=== PATIENT | male | born 1960 | race Caucasian/White ===

== ENCOUNTER 2016-10-13 22:32 | Emergency (ER) | payer MEDICAID ==
[~2016-10-13] VITALS: Ht 170.2 cm; Wt 96.8 kg
[~2016-10-13 22:32] MED LIST: ATOR10TA84 PO; INSLAN SQ; LISI-662 PO; LOSA25TA21 PO; METF500T4 PO; SIMV-260 PO
[2016-10-13 22:42] LABS: GLUCOSE,POINT OF CARE 130 MG/DL (70-110)
[2016-10-13 23:12] LABS: BASOPHILS % (AUTO) 0.7 % (0.0-2.0); EOSINOPHILS % (AUTO) 5.7 % (1.0-6.0); HEMATOCRIT 42.1 % (41-53); LYMPHOCYTES # (AUTO) 2.7 K/uL (1.0-4.8); LYMPHOCYTES % (AUTO) 35.4 % (22.0-44.0); MEAN CORPUSCULAR HEMOGLOBIN 29.6 pg (26.0-34.0); MEAN CORPUSCULAR HGB CONC 33.2 G/dL (31.0-37.0); MEAN CORPUSCULAR VOLUME 89 fL (80-100); MONOCYTES # (AUTO) 0.8 K/uL (0.1-1.0); MONOCYTES % (AUTO) 10.1 % (2.0-9.0); NEUTROPHILS # (AUTO) 3.7 K/uL (1.8-7.7); NEUTROPHILS % (AUTO) 48.1 % (40.0-70.0); PLATELET COUNT (AUTO) 264 K/uL (150-450); RED BLOOD CELL COUNT(AUTO) 4.72 MIL/uL (4.50-5.90); RED CELL DISTRIBUTION WIDTH 12.8 % (11.5-14.5); WHITE BLOOD COUNT (AUTO) 7.6 K/uL (4.5-11.0)
[2016-10-13 23:15] LABS: APPEARANCE,URINE CLEAR (CLEAR); GLUCOSE, URINE (UA) NEGATIVE (NEGATIVE); KETONES,URINE NEGATIVE (NEGATIVE); LEUKOCYTE ESTERASE ,URINE NEGATIVE (NEGATIVE); OCCULT BLOOD,URINE NEGATIVE (NEGATIVE); PROTEIN,URINE TRACE (NEGATIVE)
[2016-10-13 23:18] LABS: ADD UA MICROSCOPIC NO
[2016-10-13 23:21] LABS: ANION GAP 10 mmol/L (8-16); CALCIUM, TOTAL 9.1 mg/dL (8.8-10.5); CARBON DIOXIDE 27 mmol/L (22-29); CHLORIDE 101 mmol/L (98-107); CREATININE 0.82 mg/dL (0.60-1.30); GLOMERULAR FILTR. RATE CALC > 60 mL/min (>60); POTASSIUM 3.6 mmol/L (3.5-5.1); SODIUM SERUM 138 mmol/L (136-145); UREA NITROGEN, BLOOD 19 mg/dL (7-18)
[2016-10-13 23:28] LABS: ALANINE AMINOTRANSFERASE 38 U/L (12-78); ALBUMIN 3.8 g/dL (3.4-5.0); ASPARTATE AMINOTRANSFERASE 21 U/L (15-37); BILIRUBIN,TOTAL 0.2 mg/dL (0.1-1.0); TOTAL PROTEIN, SERUM 7.6 g/dL (6.4-8.2)
[2016-10-14] MEDS ORDERED: ONDANSETRON HCL 4 MG/2 ML VIAL IVP ONE (01:30)
[2016-10-14] MEDS ORDERED: MORPHINE SULFATE 4 MG/ML SYRINGE IVP ONE (01:30)
[2016-10-14 02:52] VITALS: BP 126/73
== END 2016-10-14 02:54 | disposition home or self-care (01) ==
LOC: EMS 22:35
DX: R10.84 Generalized abdominal pain (principal); E11.9 Type 2 diabetes mellitus without complications; I10 Essential (primary) hypertension; E78.00 Pure hypercholesterolemia, unspecified; F17.210 Nicotine dependence, cigarettes, uncomplicated
CPT/HCPCS: 36415; 80053; 81003; 82962; 83690; 85025; 93005; 96374; 96375; 99285; J2270; J2405

== ENCOUNTER 2017-05-17 18:47 | Emergency (ER) | payer MEDICAID ==
[~2017-05-17] VITALS: Ht 170.2 cm; Wt 95.5 kg
[2017-05-17 18:57] LABS: GLUCOSE,POINT OF CARE 201 MG/DL (70-110)
[2017-05-17] MEDS ORDERED: BUPIVACAINE HCL 0.25% 50 ML VIAL PERC ONE (21:45)
[2017-05-17] MEDS ORDERED: LIDOCAINE HCL 1% 10 ML VIAL INJ ONE (21:45)
[2017-05-17] MEDS ORDERED: BUPIVACAINE HCL/PF 0.25% 10 ML VIAL PERC ONE (22:00)
[2017-05-18 00:11] VITALS: BP 120/75
== END 2017-05-18 00:15 | disposition home or self-care (01) ==
LOC: EMS 18:51
DX: S61.011A Laceration without foreign body of right thumb without damage to nail, initial encounter (principal); E78.00 Pure hypercholesterolemia, unspecified; E11.9 Type 2 diabetes mellitus without complications; I10 Essential (primary) hypertension; W26.8XXA Contact with other sharp object(s), not elsewhere classified, initial encounter; Y93.89 Activity, other specified; Y92.89 Other specified places as the place of occurrence of the external cause; Y99.8 Other external cause status
CPT/HCPCS: 12001; 73130; 82962; 99284; J3490 ×2

== ENCOUNTER 2017-11-17 16:47 | Emergency (ER) | payer MEDICAID ==
[~2017-11-17] VITALS: Ht 170.2 cm; Wt 99.1 kg
[2017-11-17] MEDS ORDERED: ASPI81 PO (17:05)
[2017-11-17 17:11] LABS: GLUCOSE,POINT OF CARE 281 MG/DL (70-110)
[2017-11-17] MEDS ORDERED: PROPARACAINE/FLUORESCEIN SOD 0.5-0.25% 0.5 ML OPHTHALMIC SOLUTION OD ONE (18:00)
[2017-11-17] MEDS ORDERED: PROPARACAINE HCL 0.5% 15 ML OPHTHALMIC SOLUTION OD ONE (18:00)
[2017-11-17] MEDS ORDERED: ERYTHROMYCIN 0.5% 3.5 GM TUBE OPHTHALMIC OINTMENT OD ONE (18:30)
[2017-11-17 18:53] VITALS: BP 136/78
== END 2017-11-17 18:58 | disposition home or self-care (01) ==
LOC: EMS 16:48
DX: T15.01XA Foreign body in cornea, right eye, initial encounter (principal); I10 Essential (primary) hypertension; M79.651 Pain in right thigh; E11.9 Type 2 diabetes mellitus without complications; E78.00 Pure hypercholesterolemia, unspecified; F17.210 Nicotine dependence, cigarettes, uncomplicated; Z79.4 Long term (current) use of insulin; Z79.82 Long term (current) use of aspirin; Y92.59 Other trade areas as the place of occurrence of the external cause
CPT/HCPCS: 65205; 82962; 99284; Z7610

== ENCOUNTER 2018-11-08 10:58 | Emergency (ER) | payer MEDICAID ==
[~2018-11-08] VITALS: Ht 167.6 cm; Wt 99.5 kg
[~2018-11-08 10:58] MED LIST changes: +ASPI81 PO; -LISI-662 PO; -LOSA25TA21 PO; +LOSA25TA41 PO; +METF-960 PO; -METF500T4 PO
[2018-11-08 11:10] VITALS: BP 132/79
[2018-11-08 11:23] LABS: GLUCOSE,POINT OF CARE 103 MG/DL (70-110)
[2018-11-08 11:44] LABS: BASOPHILS % (AUTO) 0.8 % (0.0-2.0); EOSINOPHILS % (AUTO) 3.6 % (1.0-6.0); HEMATOCRIT 44.7 % (41-53); LYMPHOCYTES # (AUTO) 1.4 K/uL (1.0-4.8); LYMPHOCYTES % (AUTO) 19.1 % (22.0-44.0); MEAN CORPUSCULAR HEMOGLOBIN 30.1 pg (26.0-34.0); MEAN CORPUSCULAR HGB CONC 33.5 G/dL (31.0-37.0); MEAN CORPUSCULAR VOLUME 90 fL (80-100); MONOCYTES # (AUTO) 0.4 K/uL (0.1-1.0); MONOCYTES % (AUTO) 5.9 % (2.0-9.0); NEUTROPHILS # (AUTO) 5.3 K/uL (1.8-7.7); NEUTROPHILS % (AUTO) 70.6 % (40.0-70.0); PLATELET COUNT (AUTO) 251 K/uL (150-450); RED BLOOD CELL COUNT(AUTO) 4.98 MIL/uL (4.50-5.90); RED CELL DISTRIBUTION WIDTH 13.5 % (11.5-14.5)
[2018-11-08] MEDS ORDERED: ONDANSETRON HCL 4 MG/2 ML VIAL IVP ONE (11:45)
[2018-11-08] MEDS ORDERED: MORPHINE SULFATE 4 MG/ML SYRINGE IVP ONE (11:45)
[2018-11-08 11:55] LABS: PROTHROMBIN TIME 10.4 SEC (9.4-11.6)
[2018-11-08 11:56] LABS: ANION GAP 8 mmol/L (8-16); CALCIUM, TOTAL 9.4 mg/dL (8.8-10.5); CARBON DIOXIDE 30 mmol/L (22-29); CHLORIDE 104 mmol/L (98-107); CREATININE 0.87 mg/dL (0.60-1.30); GLOMERULAR FILTR. RATE CALC > 60 mL/min (>60); GLUCOSE,RANDOM 98 mg/dL (70-110); POTASSIUM 4.3 mmol/L (3.5-5.1); SODIUM SERUM 142 mmol/L (136-145); UREA NITROGEN, BLOOD 15 mg/dL (7-18)
[2018-11-08 12:06] LABS: ALANINE AMINOTRANSFERASE 25 U/L (12-78); ALKALINE PHOSPHATASE 84 U/L (46-116); ASPARTATE AMINOTRANSFERASE 19 U/L (15-37); BILIRUBIN,TOTAL 0.3 mg/dL (0.1-1.0); TOTAL PROTEIN, SERUM 7.9 g/dL (6.4-8.2)
== END 2018-11-08 12:06 | disposition short-term general hospital (02) ==
LOC: EMS 11:00
DX: S30.810A Abrasion of lower back and pelvis, initial encounter (principal); S09.90XA Unspecified injury of head, initial encounter; M54.2 Cervicalgia; R07.9 Chest pain, unspecified; I10 Essential (primary) hypertension; E11.9 Type 2 diabetes mellitus without complications; E78.00 Pure hypercholesterolemia, unspecified; F17.210 Nicotine dependence, cigarettes, uncomplicated; Z79.4 Long term (current) use of insulin; Z79.82 Long term (current) use of aspirin; Z79.899 Other long term (current) drug therapy; W11.XXXA Fall on and from ladder, initial encounter; Y93.89 Activity, other specified; Y92.89 Other specified places as the place of occurrence of the external cause; Y99.8 Other external cause status
CPT/HCPCS: 36415; 71045; 80053; 82962; 85025; 85610; 85730; 93005; 96374; 96375; 99291; J2270; J2405

== ENCOUNTER 2019-06-12 17:26 | Emergency (ER) | payer MEDICAID ==
[~2019-06-12] VITALS: Ht 165.1 cm; Wt 100.0 kg
[2019-06-12] MEDS ORDERED: GLIP10 PO (17:33)
[2019-06-12] MEDS ORDERED: BACITRACIN 0.9 GM PACKET OINTMENT TP ONE (18:45)
[2019-06-12] MEDS ORDERED: POVIDONE-IODINE 10% 15 ML SOLUTION UD TP ONE (18:45)
[2019-06-12] MEDS ORDERED: LIDOCAINE 1%/EPI 1:200,000/PF 10 ML VIAL INJ ONE (18:45)
[2019-06-12] MEDS ORDERED: PERTUSS(ACELL),DIPH,TET VAC/PF 0.5 ML VIAL IM ONE (18:45)
[2019-06-12 20:10] VITALS: BP 147/95
== END 2019-06-12 20:37 | disposition home or self-care (01) ==
LOC: EMS 17:27
DX: S51.811A Laceration without foreign body of right forearm, initial encounter (principal); E11.9 Type 2 diabetes mellitus without complications; E78.00 Pure hypercholesterolemia, unspecified; I10 Essential (primary) hypertension; F17.210 Nicotine dependence, cigarettes, uncomplicated; Z98.890 Other specified postprocedural states; Z79.899 Other long term (current) drug therapy; W26.8XXA Contact with other sharp object(s), not elsewhere classified, initial encounter; Y93.89 Activity, other specified; Y92.89 Other specified places as the place of occurrence of the external cause; Y99.8 Other external cause status
CPT/HCPCS: 12002; 90471; 90715; 99283; J3490

== ENCOUNTER 2021-03-23 17:53 | Emergency (ER) | payer MEDICAID ==
[~2021-03-23] VITALS: Ht 170.2 cm; Wt 103.0 kg
[~2021-03-23 17:53] MED LIST changes: +ASPI-1450 PO; -ASPI81 PO; -ATOR10TA84 PO; +GLIP10 PO; +LOSA25TA21 PO; -LOSA25TA41 PO
[2021-03-23 20:32] VITALS: BP 158/79
== END 2021-03-23 20:34 | disposition home or self-care (01) ==
LOC: EMS 17:54
DX: M79.89 Other specified soft tissue disorders (principal); E11.9 Type 2 diabetes mellitus without complications; E78.00 Pure hypercholesterolemia, unspecified; I10 Essential (primary) hypertension; F17.210 Nicotine dependence, cigarettes, uncomplicated
CPT/HCPCS: 99283

== ENCOUNTER 2021-08-04 19:57 | Emergency (ER) | payer MEDICAID ==
[~2021-08-04] VITALS: Ht 170.2 cm; Wt 100.0 kg
[~2021-08-04 19:57] MED LIST changes: +METF-1211 PO; -METF-960 PO
[2021-08-04] MEDS ORDERED: GENTAMICIN SULFATE 0.3% OPHTHALMIC SOLUTION 5 ML OS ONE (21:45)
[2021-08-04] MEDS ORDERED: ACETAMINOPHEN 500 MG TABLET PO ONE (21:45)
[2021-08-04] MEDS ORDERED: FLUORESCEIN SODIUM 1 MG STRIP ONE (22:21)
[2021-08-04 22:46] VITALS: BP 142/58
== END 2021-08-04 22:54 | disposition home or self-care (01) ==
LOC: EMS 20:00
DX: S05.02XA Injury of conjunctiva and corneal abrasion without foreign body, left eye, initial encounter (principal); I10 Essential (primary) hypertension; E11.9 Type 2 diabetes mellitus without complications; E78.00 Pure hypercholesterolemia, unspecified; F17.210 Nicotine dependence, cigarettes, uncomplicated; Z79.4 Long term (current) use of insulin; Z79.82 Long term (current) use of aspirin; Z79.899 Other long term (current) drug therapy; X58.XXXA Exposure to other specified factors, initial encounter; Y93.89 Activity, other specified; Y92.89 Other specified places as the place of occurrence of the external cause; Y99.8 Other external cause status
CPT/HCPCS: 99283

== ENCOUNTER 2022-04-12 12:36 | Emergency (ER) | payer MEDICAID, OTHER ==
[~2022-04-12] VITALS: Ht 170.2 cm; Wt 100.0 kg
[~2022-04-12 12:36] MED LIST changes: -GLIP10 PO; +GLIP10TA10 PO; +LOSA-381 PO; -LOSA25TA21 PO
[2022-04-12] MEDS ORDERED: LISI-892 PO ×2 (13:11→14:03)
[2022-04-12] MEDS ORDERED: PERTUSS(ACELL),DIPH,TET VAC/PF 0.5 ML SYRINGE IM. ONE (14:00)
[2022-04-12] MEDS ORDERED: LIDOCAINE 1% 10 ML VIAL PERC ONE (14:00)
[2022-04-12] MEDS ORDERED: NEOMYCIN/BACITRACIN/POLYMYXIN B OINTMENT PACKET TP ONE (14:00)
[2022-04-12] MEDS ORDERED: LOSA100T58 PO (14:03)
[2022-04-12] MEDS ORDERED: GLIP5TAB12 PO (14:03)
[2022-04-12] MEDS ORDERED: ATOR40TA71 PO (14:03)
[2022-04-12] MEDS ORDERED: ASPI-1444 PO (14:03)
[2022-04-12] MEDS ORDERED: PIOG30TA70 PO (14:03)
[2022-04-12] MEDS ORDERED: CEPH-558 PO ×2 (14:06→14:55)
[2022-04-12 15:44] VITALS: BP 141/74
== END 2022-04-12 15:55 | disposition home or self-care (01) ==
LOC: EMS 12:37
DX: S61.411A Laceration without foreign body of right hand, initial encounter (principal); E11.9 Type 2 diabetes mellitus without complications; E78.00 Pure hypercholesterolemia, unspecified; I10 Essential (primary) hypertension; F17.210 Nicotine dependence, cigarettes, uncomplicated; Z98.890 Other specified postprocedural states; W22.8XXA Striking against or struck by other objects, initial encounter; Y93.89 Activity, other specified; Y92.89 Other specified places as the place of occurrence of the external cause; Y99.8 Other external cause status
CPT/HCPCS: 99283; 82962; 90715; 90471; 12001; J3490

== ENCOUNTER 2022-04-19 09:09 | Emergency (ER) | payer OTHER ==
[~2022-04-19] VITALS: Ht 170.2 cm; Wt 100.0 kg
[~2022-04-19 09:09] MED LIST changes: +ASPI-1444 PO; -ASPI-1450 PO; +ATOR40TA71 PO; +CEPH-558 PO; -GLIP10TA10 PO; +GLIP5TAB12 PO; +LISI-892 PO; -LOSA-381 PO; +LOSA100T58 PO; +PIOG30TA70 PO; -SIMV-260 PO
[2022-04-19 10:10] VITALS: BP 126/68
== END 2022-04-19 10:15 | disposition home or self-care (01) ==
LOC: EMS 09:10
DX: S61.412D Laceration without foreign body of left hand, subsequent encounter (principal); E11.9 Type 2 diabetes mellitus without complications; E78.00 Pure hypercholesterolemia, unspecified; I10 Essential (primary) hypertension; Z98.890 Other specified postprocedural states; X58.XXXD Exposure to other specified factors, subsequent encounter
CPT/HCPCS: 82962; 99281; 99282

== ENCOUNTER 2022-07-17 08:04 | Emergency (ER) | payer OTHER ==
[~2022-07-17] VITALS: Ht 170.2 cm; Wt 99.1 kg
[2022-07-17 08:36] LABS: COVID AG,FIA SOURCE NASAL SWAB
[2022-07-17 10:15] VITALS: BP 141/76
== END 2022-07-17 10:34 | disposition home or self-care (01) ==
LOC: EMS 08:34
DX: J02.8 Acute pharyngitis due to other specified organisms (principal); B97.89 Other viral agents as the cause of diseases classified elsewhere; Z20.822 Contact with and (suspected) exposure to COVID-19; E11.9 Type 2 diabetes mellitus without complications; E78.00 Pure hypercholesterolemia, unspecified; F17.210 Nicotine dependence, cigarettes, uncomplicated; I10 Essential (primary) hypertension
CPT/HCPCS: 87430; 99283

== ENCOUNTER 2023-05-03 20:10 | Inpatient (IN) | payer OTHER ==
[~2023-05-03] VITALS: Ht 170.2 cm; Wt 62.0 kg
[~2023-05-03 20:10] MED LIST changes: -LOSA100T58 PO; +LOSA100T59 PO
[2023-05-03 21:04] LABS: BASOPHILS % (AUTO) 1.1 % (0.0-2.0); EOSINOPHILS % (AUTO) 4.3 % (1.0-6.0); HEMATOCRIT 45.4 % (41-53); LYMPHOCYTES # (AUTO) 1.6 K/uL (1.0-4.8); LYMPHOCYTES % (AUTO) 27.1 % (22.0-44.0); MEAN CORPUSCULAR HEMOGLOBIN 30.8 pg (26.0-34.0); MEAN CORPUSCULAR HGB CONC 32.9 G/dL (31.0-37.0); MEAN CORPUSCULAR VOLUME 94 fL (80-100); MONOCYTES # (AUTO) 0.6 K/uL (0.1-1.0); NEUTROPHILS # (AUTO) 3.4 K/uL (1.8-7.7); NEUTROPHILS % (AUTO) 57.5 % (40.0-70.0); PLATELET COUNT (AUTO) 226 K/uL (150-450); RED BLOOD CELL COUNT(AUTO) 4.85 MIL/uL (4.50-5.90); RED CELL DISTRIBUTION WIDTH 13.5 % (11.5-14.5)
[2023-05-03 21:19] LABS: TROPONIN I-HIGH SENSITIVITY 6 ng/L (<76)
[2023-05-03 21:27] LABS: ANION GAP 10 mmol/L (8-16); CALCIUM, TOTAL 9.3 mg/dL (8.8-10.5); CARBON DIOXIDE 25 mmol/L (22-29); CHLORIDE 101 mmol/L (98-107); CREATININE 0.87 mg/dL (0.60-1.30); GLOMERULAR FILTR. RATE CALC > 60 mL/min (>60); GLUCOSE,RANDOM 144 mg/dL (70-110); POTASSIUM 3.7 mmol/L (3.5-5.1); SODIUM SERUM 136 mmol/L (136-145); UREA NITROGEN, BLOOD 24 mg/dL (7-18)
[2023-05-03 21:33] LABS: ALANINE AMINOTRANSFERASE 16 U/L (12-78); ALBUMIN 3.7 g/dL (3.4-5.0); ALKALINE PHOSPHATASE 93 U/L (46-116); ASPARTATE AMINOTRANSFERASE 14 U/L (15-37); BILIRUBIN,TOTAL 0.2 mg/dL (0.1-1.0)
[2023-05-03] MEDS ORDERED: ACETAMINOPHEN 500 MG TABLET PO ONE (22:15)
[2023-05-03] MEDS ORDERED: ONDANSETRON HCL 4 MG/2 ML VIAL IVP PRN ×2 (23:00)
[2023-05-03] MEDS ORDERED: ATROPINE SULFATE 0.1 MG/ML 10 ML SYRINGE IVP PRN (23:00)
[2023-05-03] MEDS ORDERED: DEXTROSE 50%-WATER 25 GM/50 ML SYRINGE IVP PRN (23:00)
[2023-05-03] MEDS ORDERED: ACETAMINOPHEN 325 MG TABLET PO PRN (23:00)
[2023-05-03] MEDS: HEPARIN SODIUM,PORCINE 5,000 UNITS/ML VIAL SQ SCH (23:15)
[2023-05-03 23:37] LABS: TROPONIN I-HIGH SENSITIVITY 9 ng/L (<76)
[2023-05-04] MEDS: SODIUM CHLORIDE 0.9% 1,000 ML IV SCH ×2 (02:02→22:11)
[2023-05-04 04:31] LABS: RED CELL DISTRIBUTION WIDTH 13.6 % (11.5-14.5)
[2023-05-04 04:35] LABS: BASOPHILS % (AUTO) 0.7 % (0.0-2.0); HEMATOCRIT 45.7 % (41-53); HEMOGLOBIN 15.2 g/dL (13.5-17.5); LYMPHOCYTES # (AUTO) 1.9 K/uL (1.0-4.8); LYMPHOCYTES % (AUTO) 33.3 % (22.0-44.0); MEAN CORPUSCULAR HEMOGLOBIN 31.2 pg (26.0-34.0); MEAN CORPUSCULAR HGB CONC 33.2 G/dL (31.0-37.0); MEAN CORPUSCULAR VOLUME 94 fL (80-100); MONOCYTES # (AUTO) 0.4 K/uL (0.1-1.0); MONOCYTES % (AUTO) 6.9 % (2.0-9.0); NEUTROPHILS # (AUTO) 3.2 K/uL (1.8-7.7); NEUTROPHILS % (AUTO) 55.1 % (40.0-70.0); PLATELET COUNT (AUTO) 217 K/uL (150-450); RED BLOOD CELL COUNT(AUTO) 4.86 MIL/uL (4.50-5.90); WHITE BLOOD COUNT (AUTO) 5.8 K/uL (4.5-11.0)
[2023-05-04 04:50] LABS: ANION GAP 8 mmol/L (8-16); CARBON DIOXIDE 26 mmol/L (22-29); CHLORIDE 103 mmol/L (98-107); CREATININE 0.54 mg/dL (0.60-1.30); GLOMERULAR FILTR. RATE CALC > 60 mL/min (>60); GLUCOSE,RANDOM 122 mg/dL (70-110); POTASSIUM 3.7 mmol/L (3.5-5.1); SODIUM SERUM 137 mmol/L (136-145); UREA NITROGEN, BLOOD 21 mg/dL (7-18)
[2023-05-04 05:03] LABS: CALCIUM, TOTAL 8.9 mg/dL (8.8-10.5)
[2023-05-04 05:04] LABS: TROPONIN I-HIGH SENSITIVITY 7 ng/L (<76)
[2023-05-04] MEDS: ASPIRIN 81 MG CHEWABLE TABLET PO SCH (07:31)
[2023-05-04] MEDS: ATORVASTATIN CALCIUM 40 MG TABLET PO SCH (07:31)
[2023-05-04] MEDS: HEPARIN SODIUM,PORCINE 5,000 UNITS/ML VIAL SQ SCH ×3 (07:31→23:09)
[2023-05-04] MEDS: DOCUSATE SODIUM 100 MG CAPSULE PO SCH ×2 (07:37→22:09)
[2023-05-04 08:11] LABS: GLUCOMETER DEV NAME(LOC) ER.6; GLUCOSE,POINT OF CARE 137 MG/DL (70-110)
[2023-05-04] MEDS: INSULIN GLARGINE,HUM.REC.ANLOG 100 UNITS/ML SQ SCH ×2 (08:29→21:13)
[2023-05-04] MEDS: ACETAMINOPHEN 325 MG TABLET PO PRN ×2 (11:42→23:10)
[2023-05-04 12:11] VITALS: BP 121/58; PULSE 42; RESP 20; TEMP 98
[2023-05-04 15:47] VITALS: BP 125/82; PULSE 62; RESP 18; TEMP 97.5
[2023-05-04] MEDS: INSULIN LISPRO 100 UNITS/ML SQ PRN ×2 (18:08→21:14)
[2023-05-04 19:15] VITALS: BP 122/71; PULSE 58; RESP 18; TEMP 98.1
[2023-05-04 22:55] VITALS: BP 126/69; PULSE 49; RESP 18; TEMP 98.2
[2023-05-04 23:36] LABS: GLUCOMETER DEV NAME(LOC) 5S.2C; GLUCOSE,POINT OF CARE 160 MG/DL (70-110)
[2023-05-05 03:19] VITALS: BP 122/66; PULSE 48; RESP 18; TEMP 98.1
[2023-05-05 07:37] VITALS: BP 135/74; PULSE 50; RESP 18; TEMP 98
[2023-05-05 08:12] LABS: GLUCOMETER DEV NAME(LOC) 5S.1B; GLUCOSE,POINT OF CARE 123 MG/DL (70-110)
[2023-05-05 08:12] LABS: GLUCOMETER DEV NAME(LOC) 5S.1B; GLUCOSE,POINT OF CARE 155 MG/DL (70-110)
[2023-05-05] MEDS: HEPARIN SODIUM,PORCINE 5,000 UNITS/ML VIAL SQ SCH ×3 (08:18→23:22)
[2023-05-05] MEDS: DOCUSATE SODIUM 100 MG CAPSULE PO SCH ×2 (08:19→20:38)
[2023-05-05] MEDS: ASPIRIN 81 MG CHEWABLE TABLET PO SCH (08:19)
[2023-05-05] MEDS: ATORVASTATIN CALCIUM 40 MG TABLET PO SCH (08:19)
[2023-05-05] MEDS: INSULIN GLARGINE,HUM.REC.ANLOG 100 UNITS/ML SQ SCH ×2 (08:20→20:38)
[2023-05-05] MEDS ORDERED: AMINOPHYLLINE 25 MG/ML 10 ML VIAL IVP PRN (08:30)
[2023-05-05] MEDS ORDERED: REGADENOSON 0.4 MG/5 ML PF SYRINGE IVP ONE (08:30)
[2023-05-05 09:01] LABS: GLUCOMETER DEV NAME(LOC) 5S.1B; GLUCOSE,POINT OF CARE 129 MG/DL (70-110)
[2023-05-05] MEDS ORDERED: SESTAMIBI TC99M/UD ISOTOPE 1 EA INJ INJ ONE ×2 (11:20→13:20)
[2023-05-05 11:54] VITALS: BP 138/76; PULSE 47; O2SAT 96
[2023-05-05 12:03] VITALS: BP 118/72; PULSE 52
[2023-05-05 12:12] LABS: GLUCOMETER DEV NAME(LOC) 5S.2C; GLUCOSE,POINT OF CARE 122 MG/DL (70-110)
[2023-05-05 12:36] LABS: GLUCOMETER DEV NAME(LOC) 5N.1C; GLUCOSE,POINT OF CARE 133 MG/DL (70-110)
[2023-05-05 17:18] VITALS: BP 124/83; PULSE 59; RESP 19; TEMP 98.2
[2023-05-05] MEDS: SODIUM CHLORIDE 0.9% 1,000 ML IV SCH (17:20)
[2023-05-05] MEDS: INSULIN LISPRO 100 UNITS/ML SQ PRN ×2 (17:49→20:38)
[2023-05-05 18:20] LABS: GLUCOMETER DEV NAME(LOC) 5S.2C; GLUCOSE,POINT OF CARE 147 MG/DL (70-110)
[2023-05-05 19:57] VITALS: BP 126/69; PULSE 60; RESP 18; TEMP 98.4
[2023-05-05 21:02] LABS: GLUCOMETER DEV NAME(LOC) 5S.1B; GLUCOSE,POINT OF CARE 168 MG/DL (70-110)
[2023-05-06] VITALS (17 sets, daily range): BP systolic 110–148; BP diastolic 56–82; PULSE 36–65; RESP 17–20; TEMP 97.1–98.2; O2SAT 95–98
[2023-05-06] MEDS: INSULIN LISPRO 100 UNITS/ML SQ PRN ×2 (06:21→20:36)
[2023-05-06] MEDS: HEPARIN SODIUM,PORCINE 5,000 UNITS/ML VIAL SQ SCH ×2 (08:16→16:00)
[2023-05-06] MEDS: DOCUSATE SODIUM 100 MG CAPSULE PO SCH ×2 (08:16→20:30)
[2023-05-06] MEDS: ATORVASTATIN CALCIUM 40 MG TABLET PO SCH (08:17)
[2023-05-06] MEDS: ASPIRIN 81 MG CHEWABLE TABLET PO SCH (08:18)
[2023-05-06] MEDS: INSULIN GLARGINE,HUM.REC.ANLOG 100 UNITS/ML SQ SCH ×2 (08:26→20:36)
[2023-05-06 11:36] LABS: GLUCOMETER DEV NAME(LOC) 5S.1B; GLUCOSE,POINT OF CARE 141 MG/DL (70-110)
[2023-05-06] MEDS ORDERED: LIDOCAINE/PF 1% 30 ML VIAL ONE (14:28)
[2023-05-06] MEDS ORDERED: SODIUM BICARBONATE 50 MEQ/50 ML VIAL ONE (14:28)
[2023-05-06] MEDS ORDERED: CeFAZolin SODIUM 1 GM VIAL ONE (14:28)
[2023-05-06] MEDS ORDERED: MIDAZOLAM HCL 2 MG/2 ML VIAL ONE (15:01)
[2023-05-06] MEDS ORDERED: FentaNYL CITRATE PF 100 MCG/2 ML VIAL ONE (15:01)
[2023-05-06] MEDS ORDERED: IOHEXOL 300 MG/ML 50 ML VIAL ONE (15:07)
[2023-05-06] MEDS ORDERED: LIDOCAINE 1% 30 ML/SOD BICARB 8.4% 4 ML SQ ONE (15:30)
[2023-05-06] MEDS ORDERED: CeFAZolin SODIUM 1 GM VIAL IVP ONE (15:30)
[2023-05-06] MEDS ORDERED: FentaNYL CITRATE PF 100 MCG/2 ML VIAL IVP ONE (15:30)
[2023-05-06] MEDS ORDERED: CeFAZolin SODIUM 1 GM VIAL IRRIG ONE (15:30)
[2023-05-06] MEDS ORDERED: MIDAZOLAM HCL 2 MG/2 ML VIAL IVP ONE (15:30)
[2023-05-06 16:46] LABS: GLUCOMETER DEV NAME(LOC) 5S.1B; GLUCOSE,POINT OF CARE 108 MG/DL (70-110)
[2023-05-06] MEDS ORDERED: AMINOPHYLLINE 25 MG/ML 10 ML VIAL ONE (16:54)
[2023-05-06] MEDS ORDERED: REGADENOSON 0.4 MG/5 ML PF SYRINGE IVP ONE (16:54)
[2023-05-06 17:41] LABS: GLUCOMETER DEV NAME(LOC) 5S.2C; GLUCOSE,POINT OF CARE 98 MG/DL (70-110)
[2023-05-06] MEDS: ACETAMINOPHEN 325 MG TABLET PO PRN (18:14)
[2023-05-06] MEDS: SODIUM CHLORIDE 0.9% 1,000 ML IV SCH (18:22)
[2023-05-06] MEDS ORDERED: HYDROCODONE/ACETAMINOPHEN 5-325 MG TABLET PO PRN (19:30)
[2023-05-06] MEDS: HYDROCODONE/ACETAMINOPHEN 5-325 MG TABLET PO PRN (20:28)
[2023-05-06] MEDS: CeFAZolin 1 GM/DEXTROSE 50 ML IV SCH (23:51)
[2023-05-07 00:05] VITALS: BP 114/71; PULSE 60; RESP 20; TEMP 97.7
[2023-05-07 00:16] LABS: GLUCOMETER DEV NAME(LOC) 5N.1C; GLUCOSE,POINT OF CARE 98 MG/DL (70-110)
[2023-05-07 01:12] LABS: GLUCOMETER DEV NAME(LOC) 5S.1B; GLUCOSE,POINT OF CARE 254 MG/DL (70-110)
[2023-05-07 05:58] VITALS: BP 134/77; PULSE 60; RESP 20; TEMP 98.1
[2023-05-07] MEDS: HYDROCODONE/ACETAMINOPHEN 5-325 MG TABLET PO PRN (06:04)
[2023-05-07 08:13] VITALS: BP 121/76; PULSE 58; RESP 18; TEMP 97.8
[2023-05-07] MEDS: CeFAZolin 1 GM/DEXTROSE 50 ML IV SCH (08:35)
[2023-05-07] MEDS: ASPIRIN 81 MG CHEWABLE TABLET PO SCH (08:36)
[2023-05-07] MEDS: DOCUSATE SODIUM 100 MG CAPSULE PO SCH (08:36)
[2023-05-07] MEDS: ATORVASTATIN CALCIUM 40 MG TABLET PO SCH (08:36)
[2023-05-07] MEDS: INSULIN GLARGINE,HUM.REC.ANLOG 100 UNITS/ML SQ SCH (08:44)
[2023-05-07 11:41] VITALS: BP 128/69; PULSE 71; RESP 18; TEMP 98.3
[2023-05-07] MEDS ORDERED: TRAM-559 PO (14:23)
[2023-05-08 03:16] LABS: GLUCOMETER DEV NAME(LOC) 5N.2C; GLUCOSE,POINT OF CARE 146 MG/DL (70-110)
[2023-05-08 03:16] LABS: GLUCOMETER DEV NAME(LOC) 5N.2C; GLUCOSE,POINT OF CARE 127 MG/DL (70-110)
== END 2023-05-07 15:10 | disposition home or self-care (01) | DRG 171 ==
LOC: EMS 20:11 → AHU 05-04 02:00 → 5S 05-04 10:24
PROVIDERS: ADMIT Internal Medicine; ATTEND Internal Medicine
PROC: 0JH606Z Insertion of Pacemaker, Dual Chamber into Chest Subcutaneous Tissue and Fascia, Open Approach (ICD-10-PCS; principal; 2023-05-06)
PROC: 02H60JZ Insertion of Pacemaker Lead into Right Atrium, Open Approach (ICD-10-PCS; 2023-05-06)
PROC: 02HK0JZ Insertion of Pacemaker Lead into Right Ventricle, Open Approach (ICD-10-PCS; 2023-05-06)
DX: I49.5 Sick sinus syndrome (principal); E11.9 Type 2 diabetes mellitus without complications; E78.00 Pure hypercholesterolemia, unspecified; I20.8 Other forms of angina pectoris; F17.210 Nicotine dependence, cigarettes, uncomplicated; I10 Essential (primary) hypertension; Z79.84 Long term (current) use of oral hypoglycemic drugs; Z79.82 Long term (current) use of aspirin; Z79.899 Other long term (current) drug therapy; Z82.49 Family history of ischemic heart disease and other diseases of the circulatory system; Z83.3 Family history of diabetes mellitus
CPT/HCPCS: 33208; 70450; 71045; 71046; 76000; 78452; 80048; 80053; 82962; 83735; 84443; 84484; 85025; 93005; 93306; 99285; A9500; J0280; J0461; J0690; J1644; J1815; J2250; J2785; J3010; J3490; J7030; Q9967; 36415-L1; 36415-TC

== ENCOUNTER 2023-05-10 23:41 | Inpatient (IN) | payer OTHER ==
[~2023-05-10] VITALS: Ht 170.2 cm; Wt 96.2 kg
[~2023-05-10 23:41] MED LIST changes: -LOSA100T59 PO; +TRAM-559 PO
[2023-05-11] MEDS: NITROGLYCERIN 0.4 MG SUBLINGUAL TABLET #25 SL ONE ×2 (01:19→01:50)
[2023-05-11 01:24] LABS: BASOPHILS % (AUTO) 0.8 % (0.0-2.0); EOSINOPHILS % (AUTO) 6.9 % (1.0-6.0); HEMATOCRIT 41.8 % (41-53); HEMOGLOBIN 14.1 g/dL (13.5-17.5); LYMPHOCYTES # (AUTO) 1.6 K/uL (1.0-4.8); LYMPHOCYTES % (AUTO) 27.2 % (22.0-44.0); MEAN CORPUSCULAR HEMOGLOBIN 31.4 pg (26.0-34.0); MEAN CORPUSCULAR HGB CONC 33.7 G/dL (31.0-37.0); MEAN CORPUSCULAR VOLUME 93 fL (80-100); MONOCYTES # (AUTO) 0.5 K/uL (0.1-1.0); NEUTROPHILS # (AUTO) 3.3 K/uL (1.8-7.7); NEUTROPHILS % (AUTO) 56.1 % (40.0-70.0); PLATELET COUNT (AUTO) 214 K/uL (150-450); RED BLOOD CELL COUNT(AUTO) 4.49 MIL/uL (4.50-5.90); RED CELL DISTRIBUTION WIDTH 13.5 % (11.5-14.5); WHITE BLOOD COUNT (AUTO) 5.8 K/uL (4.5-11.0)
[2023-05-11 01:31] LABS: ANION GAP 8 mmol/L (8-16); CALCIUM, TOTAL 9.1 mg/dL (8.8-10.5); CARBON DIOXIDE 30 mmol/L (22-29); CHLORIDE 100 mmol/L (98-107); CREATININE 0.88 mg/dL (0.60-1.30); GLOMERULAR FILTR. RATE CALC > 60 mL/min (>60); GLUCOSE,RANDOM 126 mg/dL (70-110); POTASSIUM 4.5 mmol/L (3.5-5.1); SODIUM SERUM 138 mmol/L (136-145); UREA NITROGEN, BLOOD 21 mg/dL (7-18)
[2023-05-11] MEDS ORDERED: ACETAMINOPHEN 500 MG TABLET ONE (01:37)
[2023-05-11 01:38] LABS: ALANINE AMINOTRANSFERASE 15 U/L (12-78); ALBUMIN 3.3 g/dL (3.4-5.0); ALKALINE PHOSPHATASE 102 U/L (46-116); ASPARTATE AMINOTRANSFERASE 14 U/L (15-37); BILIRUBIN,TOTAL 0.3 mg/dL (0.1-1.0); CREATINE KINASE, TOTAL ONLY 52 U/L (39-308); LIPASE 31 U/L (16-77); TOTAL PROTEIN, SERUM 6.8 g/dL (6.4-8.2); TROPONIN I-HIGH SENSITIVITY 9 ng/L (<76)
[2023-05-11 01:39] LABS: LACTIC ACID 1.2 mmol/L (0.4-2.0)
[2023-05-11 01:44] LABS: B-TYPE NATRIURETIC PEPTIDE 43 pg/mL (0-100)
[2023-05-11] MEDS ORDERED: ACETAMINOPHEN 500 MG TABLET PO ONE (01:45)
[2023-05-11 05:37] VITALS: BP 140/83; PULSE 62; RESP 20; TEMP 97.5
[2023-05-11 08:46] VITALS: BP 141/84; PULSE 71; RESP 18; TEMP 97.8
[2023-05-11 11:22] VITALS: BP 124/79; PULSE 60; RESP 18; TEMP 98.1
[2023-05-11 13:24] VITALS: BP 125/76; PULSE 62; RESP 20; TEMP 98.2
[2023-05-11 14:48] LABS: BASOPHILS % (AUTO) 0.9 % (0.0-2.0); EOSINOPHILS % (AUTO) 6.8 % (1.0-6.0); HEMATOCRIT 43.6 % (41-53); HEMOGLOBIN 14.6 g/dL (13.5-17.5); LYMPHOCYTES # (AUTO) 1.2 K/uL (1.0-4.8); LYMPHOCYTES % (AUTO) 22.1 % (22.0-44.0); MEAN CORPUSCULAR HEMOGLOBIN 31.3 pg (26.0-34.0); MEAN CORPUSCULAR HGB CONC 33.4 G/dL (31.0-37.0); MEAN CORPUSCULAR VOLUME 94 fL (80-100); MONOCYTES # (AUTO) 0.6 K/uL (0.1-1.0); MONOCYTES % (AUTO) 10.2 % (2.0-9.0); NEUTROPHILS # (AUTO) 3.3 K/uL (1.8-7.7); PLATELET COUNT (AUTO) 204 K/uL (150-450); RED BLOOD CELL COUNT(AUTO) 4.65 MIL/uL (4.50-5.90); RED CELL DISTRIBUTION WIDTH 13.2 % (11.5-14.5); WHITE BLOOD COUNT (AUTO) 5.5 K/uL (4.5-11.0)
[2023-05-11 14:56] LABS: ANION GAP 9 mmol/L (8-16); CALCIUM, TOTAL 8.8 mg/dL (8.8-10.5); CARBON DIOXIDE 28 mmol/L (22-29); CHLORIDE 98 mmol/L (98-107); CREATININE 0.64 mg/dL (0.60-1.30); GLOMERULAR FILTR. RATE CALC > 60 mL/min (>60); GLUCOSE,RANDOM 132 mg/dL (70-110); POTASSIUM 4.1 mmol/L (3.5-5.1); SODIUM SERUM 135 mmol/L (136-145); UREA NITROGEN, BLOOD 20 mg/dL (7-18)
[2023-05-11 15:02] LABS: ALANINE AMINOTRANSFERASE 16 U/L (12-78); ALBUMIN 3.2 g/dL (3.4-5.0); ALKALINE PHOSPHATASE 87 U/L (46-116); ASPARTATE AMINOTRANSFERASE 16 U/L (15-37); BILIRUBIN,TOTAL 0.3 mg/dL (0.1-1.0); TOTAL PROTEIN, SERUM 6.9 g/dL (6.4-8.2)
[2023-05-11 15:04] LABS: TROPONIN I-HIGH SENSITIVITY 6 ng/L (<76)
[2023-05-11] MEDS ORDERED: ZOLPIDEM TARTRATE 5 MG TABLET PO PRN (17:45)
[2023-05-11] MEDS ORDERED: ACETAMINOPHEN 325 MG TABLET PO PRN (17:45)
[2023-05-11] MEDS ORDERED: DEXTROSE 50%-WATER 25 GM/50 ML SYRINGE IVP PRN (17:45)
[2023-05-11] MEDS ORDERED: IPRATROPIUM BROMIDE 0.5 MG/2.5 ML NEB SOLUTION NEB PRN (17:45)
[2023-05-11] MEDS ORDERED: MAGNESIUM HYDROXIDE SUSPENSION 30 ML UDCUP PO PRN (17:45)
[2023-05-11] MEDS ORDERED: ALBUTEROL SULFATE 2.5 MG/0.5 ML NEB SOLUTION NEB PRN (17:45)
[2023-05-11] MEDS ORDERED: ONDANSETRON HCL 4 MG/2 ML VIAL IVP PRN (17:45)
[2023-05-11] MEDS ORDERED: TraMADol HCL 50 MG TABLET PO PRN (17:45)
[2023-05-11] MEDS ORDERED: MORPHINE SULFATE 2 MG/ML SYRINGE IVP PRN (17:45)
[2023-05-11] MEDS ORDERED: HYDROCODONE/ACETAMINOPHEN 5-325 MG TABLET PO PRN (17:45)
[2023-05-11] MEDS ORDERED: BISACODYL 10 MG RECTAL RECTAL SUPPOSITORY PR PRN (17:45)
[2023-05-11] MEDS ORDERED: INSULIN LISPRO 100 UNITS/ML SQ PRN (17:45)
[2023-05-11] MEDS ORDERED: MetFORMIN HCL 500 MG TABLET PO SCH (18:00)
[2023-05-11 18:41] LABS: GLUCOMETER DEV NAME(LOC) 5S.2C; GLUCOSE,POINT OF CARE 189 MG/DL (70-110)
[2023-05-11 19:50] VITALS: BP 114/62; PULSE 62; RESP 20; TEMP 98.5
[2023-05-11] MEDS ORDERED: LOSA-382 PO (20:10)
[2023-05-11] MEDS ORDERED: DOCUSATE SODIUM 100 MG CAPSULE PO SCH (21:00)
[2023-05-11] MEDS ORDERED: CEPHALEXIN MONOHYDRATE 500 MG CAPSULE PO SCH (21:00)
[2023-05-12] MEDS ORDERED: HEPARIN SODIUM,PORCINE 5,000 UNITS/ML VIAL SQ SCH
[2023-05-12] MEDS ORDERED: GlipiZIDE 5 MG TABLET PO SCH (06:30)
[2023-05-12] MEDS ORDERED: PIOGLITAZONE HCL 30 MG TABLET PO SCH (09:00)
[2023-05-12] MEDS ORDERED: LOSARTAN POTASSIUM 50 MG TABLET PO SCH (09:00)
[2023-05-12] MEDS ORDERED: ASPIRIN 81 MG DR TABLET PO SCH (09:00)
[2023-05-12] MEDS ORDERED: PANTOPRAZOLE SODIUM 40 MG/VIAL IVP SCH (09:00)
[2023-05-12] MEDS ORDERED: ATORVASTATIN CALCIUM 40 MG TABLET PO SCH (09:00)
== END 2023-05-11 21:00 | disposition home or self-care (01) | DRG 198 ==
LOC: EMS 23:42 → 5S 05-11 03:30 → EMS 05-11 03:51 → 5S 05-11 11:06
PROVIDERS: ADMIT Hospitalist; ATTEND Hospitalist
DX: R07.89 Other chest pain (principal); I25.2 Old myocardial infarction; E11.9 Type 2 diabetes mellitus without complications; E78.00 Pure hypercholesterolemia, unspecified; F17.210 Nicotine dependence, cigarettes, uncomplicated; I10 Essential (primary) hypertension; Z83.3 Family history of diabetes mellitus; Z82.49 Family history of ischemic heart disease and other diseases of the circulatory system; Z79.82 Long term (current) use of aspirin; Z79.899 Other long term (current) drug therapy; Z95.0 Presence of cardiac pacemaker; Z91.199 Patient's noncompliance with other medical treatment and regimen due to unspecified reason
CPT/HCPCS: 71045; 80053; 82550; 82962; 83605; 83690; 83880; 84484; 85025; 87081; 93005; 99291; 36415-L1; 36415-TC

== ENCOUNTER 2023-12-29 13:25 | Emergency (ER) | payer OTHER ==
[~2023-12-29] VITALS: Ht 170.2 cm; Wt 95.0 kg
[~2023-12-29 13:25] MED LIST changes: -GLIP5TAB12 PO; +GLIP5TAB16 PO; -LISI-892 PO; +LOSA-382 PO; -TRAM-559 PO; +TRAM50TA5 PO
[2023-12-29 13:31] VITALS: TEMP 98
[2023-12-29] MEDS ORDERED: SEMA0.258 SQ (13:32)
[2023-12-29 13:49] LABS: BASOPHILS % (AUTO) 0.8 % (0.0-2.0); EOSINOPHILS % (AUTO) 4.3 % (1.0-6.0); HEMATOCRIT 47.5 % (41-53); LYMPHOCYTES # (AUTO) 1.4 K/uL (1.0-4.8); MEAN CORPUSCULAR HGB CONC 33.6 G/dL (31.0-37.0); MEAN CORPUSCULAR VOLUME 92 fL (80-100); MONOCYTES # (AUTO) 0.4 K/uL (0.1-1.0); MONOCYTES % (AUTO) 6.6 % (2.0-9.0); NEUTROPHILS # (AUTO) 4.1 K/uL (1.8-7.7); NEUTROPHILS % (AUTO) 66.3 % (40.0-70.0); PLATELET COUNT (AUTO) 230 K/uL (150-450); RED BLOOD CELL COUNT(AUTO) 5.16 MIL/uL (4.50-5.90); RED CELL DISTRIBUTION WIDTH 13.7 % (11.5-14.5); WHITE BLOOD COUNT (AUTO) 6.2 K/uL (4.5-11.0)
[2023-12-29 14:02] LABS: CALCIUM, TOTAL 9.2 mg/dL (8.8-10.5); CREATININE 1.29 mg/dL (0.60-1.30); POTASSIUM 3.7 mmol/L (3.5-5.1)
[2023-12-29 14:07] LABS: BILIRUBIN,TOTAL 0.7 mg/dL (0.1-1.0); TOTAL PROTEIN, SERUM 7.8 g/dL (6.4-8.2); TROPONIN I-HIGH SENSITIVITY 7 ng/L (<76)
[2023-12-29] MEDS ORDERED: IBUP-1554 PO (15:59)
[2023-12-29 16:13] VITALS: BP 110/96; PULSE 80; RESP 16
== END 2023-12-29 16:20 | disposition home or self-care (01) ==
LOC: EMS 13:32
DX: R07.89 Other chest pain (principal); E11.9 Type 2 diabetes mellitus without complications; E78.00 Pure hypercholesterolemia, unspecified; I10 Essential (primary) hypertension; F17.210 Nicotine dependence, cigarettes, uncomplicated; Z95.0 Presence of cardiac pacemaker; Z98.890 Other specified postprocedural states
CPT/HCPCS: 71045; 80053; 82962; 84484; 85025; 93005; 99285; 36415-L1; 36415-TC

== ENCOUNTER 2024-06-30 09:55 | Inpatient (IN) | payer OTHER ==
[~2024-06-30] VITALS: Ht 170.2 cm; Wt 92.7 kg
[~2024-06-30 09:55] MED LIST changes: -CEPH-558 PO; -GLIP5TAB16 PO; -INSLAN SQ; -LOSA-382 PO; -METF-1211 PO; -PIOG30TA70 PO; +SEMA0.258 SQ; -TRAM50TA5 PO
[2024-06-30] MEDS ORDERED: PIOG30TA70 PO (10:03)
[2024-06-30] MEDS ORDERED: SEMA1PEN3 SQ (10:03)
[2024-06-30] MEDS ORDERED: METO25 PO (10:03)
[2024-06-30] MEDS ORDERED: EMPA25TA3 PO (10:03)
[2024-06-30] MEDS ORDERED: APIX5TAB PO (10:03)
[2024-06-30] MEDS ORDERED: METF-446 PO (10:03)
[2024-06-30] MEDS ORDERED: LOSA-381 PO (10:03)
[2024-06-30 10:21] LABS: GLUCOMETER DEV NAME(LOC) ER.7; GLUCOSE,POINT OF CARE 107 MG/DL (70-110)
[2024-06-30 10:33] LABS: EOSINOPHILS % (AUTO) 5.6 % (1.0-6.0); HEMATOCRIT 46.9 % (41-53); HEMOGLOBIN 15.6 g/dL (13.5-17.5); LYMPHOCYTES # (AUTO) 1.4 K/uL (1.0-4.8); LYMPHOCYTES % (AUTO) 27.3 % (22.0-44.0); MEAN CORPUSCULAR HEMOGLOBIN 31.1 pg (26.0-34.0); MEAN CORPUSCULAR HGB CONC 33.3 G/dL (31.0-37.0); MEAN CORPUSCULAR VOLUME 93 fL (80-100); MONOCYTES # (AUTO) 0.4 K/uL (0.1-1.0); NEUTROPHILS # (AUTO) 3.1 K/uL (1.8-7.7); NEUTROPHILS % (AUTO) 58.1 % (40.0-70.0); PLATELET COUNT (AUTO) 223 K/uL (150-450); RED BLOOD CELL COUNT(AUTO) 5.02 MIL/uL (4.50-5.90); RED CELL DISTRIBUTION WIDTH 13.3 % (11.5-14.5); WHITE BLOOD COUNT (AUTO) 5.3 K/uL (4.5-11.0)
[2024-06-30] MEDS: ASPIRIN 325 MG TABLET PO ONE (10:42)
[2024-06-30 10:43] LABS: ANION GAP 12 mmol/L (8-16); CALCIUM, TOTAL 8.8 mg/dL (8.8-10.5); CARBON DIOXIDE 25 mmol/L (22-29); CHLORIDE 102 mmol/L (98-107); CREATININE 0.62 mg/dL (0.60-1.30); GLOMERULAR FILTR. RATE CALC > 60 mL/min (>60); GLUCOSE,RANDOM 109 mg/dL (70-110); POTASSIUM 3.9 mmol/L (3.5-5.1); SODIUM SERUM 139 mmol/L (136-145); UREA NITROGEN, BLOOD 15 mg/dL (7-18)
[2024-06-30 10:50] LABS: ALANINE AMINOTRANSFERASE 17 U/L (12-78); ALBUMIN 3.9 g/dL (3.4-5.0); ALKALINE PHOSPHATASE 82 U/L (46-116); ASPARTATE AMINOTRANSFERASE 17 U/L (15-37); BILIRUBIN,TOTAL 0.4 mg/dL (0.1-1.0); TOTAL PROTEIN, SERUM 7.3 g/dL (6.4-8.2)
[2024-06-30 10:57] LABS: TROPONIN I-HIGH SENSITIVITY 5 ng/L (<76)
[2024-06-30 10:59] LABS: COVID AG,FIA SOURCE NASAL SWAB
[2024-06-30 11:28] LABS: SARS-COV2 (COVID) ANTIGEN,FIA Negative (Negative)
[2024-06-30 11:29] LABS: INFLUENZA TYPE A NEGATIVE FOR TYPE A (NEGATIVE); INFLUENZA TYPE B NEGATIVE FOR TYPE B (NEGATIVE)
[2024-06-30] MEDS: ACETAMINOPHEN 500 MG TABLET PO ONE (11:48)
[2024-06-30] MEDS ORDERED: HYDROCODONE/ACETAMINOPHEN 5-325 MG TABLET PO PRN (14:45)
[2024-06-30] MEDS ORDERED: MORPHINE SULFATE 2 MG/ML SYRINGE IVP PRN (14:45)
[2024-06-30] MEDS ORDERED: ONDANSETRON HCL 4 MG/2 ML VIAL IVP PRN (14:45)
[2024-06-30] MEDS ORDERED: BISACODYL 10 MG RECTAL RECTAL SUPPOSITORY PR PRN (14:45)
[2024-06-30] MEDS ORDERED: ZOLPIDEM TARTRATE 5 MG TABLET PO PRN (14:45)
[2024-06-30] MEDS ORDERED: MAGNESIUM HYDROXIDE SUSPENSION 30 ML UDCUP PO PRN (14:45)
[2024-06-30 17:18] VITALS: BP 144/86; PULSE 64; RESP 19; TEMP 98.2; O2SAT 96
[2024-06-30] MEDS: ACETAMINOPHEN 325 MG TABLET PO PRN (18:53)
[2024-06-30 19:42] VITALS: BP 124/75; PULSE 55; RESP 18; TEMP 97.3; O2SAT 96
[2024-06-30] MEDS: DOCUSATE SODIUM 100 MG CAPSULE PO SCH (21:07)
[2024-06-30] MEDS: APIXABAN 5 MG TABLET PO SCH (21:07)
[2024-06-30] MEDS: METOPROLOL TARTRATE 25 MG TABLET PO SCH (21:07)
[2024-06-30 23:57] VITALS: BP 130/85; PULSE 59; RESP 18; TEMP 98.1; O2SAT 96
[2024-07-01 05:14] VITALS: BP 132/69; PULSE 72; RESP 18; TEMP 98.3; O2SAT 96
[2024-07-01 07:13] LABS: BASOPHILS % (AUTO) 0.9 % (0.0-2.0); EOSINOPHILS % (AUTO) 6.8 % (1.0-6.0); HEMATOCRIT 46.7 % (41-53); HEMOGLOBIN 15.7 g/dL (13.5-17.5); LYMPHOCYTES # (AUTO) 1.4 K/uL (1.0-4.8); LYMPHOCYTES % (AUTO) 23.2 % (22.0-44.0); MEAN CORPUSCULAR HEMOGLOBIN 31.3 pg (26.0-34.0); MEAN CORPUSCULAR HGB CONC 33.5 G/dL (31.0-37.0); MEAN CORPUSCULAR VOLUME 94 fL (80-100); MONOCYTES # (AUTO) 0.4 K/uL (0.1-1.0); MONOCYTES % (AUTO) 7.3 % (2.0-9.0); NEUTROPHILS # (AUTO) 3.7 K/uL (1.8-7.7); NEUTROPHILS % (AUTO) 61.8 % (40.0-70.0); PLATELET COUNT (AUTO) 223 K/uL (150-450); RED BLOOD CELL COUNT(AUTO) 4.99 MIL/uL (4.50-5.90); RED CELL DISTRIBUTION WIDTH 13.5 % (11.5-14.5)
[2024-07-01 07:25] LABS: ANION GAP 8 mmol/L (8-16); CALCIUM, TOTAL 8.5 mg/dL (8.8-10.5); CARBON DIOXIDE 26 mmol/L (22-29); CHLORIDE 103 mmol/L (98-107); CREATININE 0.53 mg/dL (0.60-1.30); GLOMERULAR FILTR. RATE CALC > 60 mL/min (>60); GLUCOSE,RANDOM 118 mg/dL (70-110); SODIUM SERUM 137 mmol/L (136-145); UREA NITROGEN, BLOOD 15 mg/dL (7-18)
[2024-07-01 07:29] LABS: TROPONIN I-HIGH SENSITIVITY 5 ng/L (<76)
[2024-07-01 08:00] VITALS: BP 125/67; PULSE 82; RESP 17; TEMP 97.6; O2SAT 97
[2024-07-01] MEDS: ATORVASTATIN CALCIUM 40 MG TABLET PO SCH (08:03)
[2024-07-01] MEDS: PANTOPRAZOLE SODIUM 40 MG DR TABLET PO SCH (08:03)
[2024-07-01] MEDS: LOSARTAN POTASSIUM 25 MG TABLET PO SCH (08:04)
[2024-07-01] MEDS: ASPIRIN 81 MG DR TABLET PO SCH (08:04)
[2024-07-01] MEDS: PIOGLITAZONE HCL 30 MG TABLET PO SCH (08:07)
[2024-07-01] MEDS: EMPAGLIFLOZIN 25 MG TABLET PO SCH (08:07)
[2024-07-01] MEDS ORDERED: OMEP20 PO (10:59)
[2024-07-01] MEDS ORDERED: NITROGLYCERIN 0.4 MG SUBLINGUAL TABLET #25 SL PRN (11:00)
== END 2024-07-01 11:45 | disposition home or self-care (01) | DRG 243 ==
LOC: EMS 09:59 → EDH 14:41 → 5N 16:49 → 5S 07-01 02:54
PROVIDERS: ADMIT Internal Medicine; ATTEND Internal Medicine
DX: K21.9 Gastro-esophageal reflux disease without esophagitis (principal); I49.5 Sick sinus syndrome; I48.20 Chronic atrial fibrillation, unspecified; R07.89 Other chest pain; Z20.822 Contact with and (suspected) exposure to COVID-19; E11.9 Type 2 diabetes mellitus without complications; E78.00 Pure hypercholesterolemia, unspecified; I10 Essential (primary) hypertension; I48.91 Unspecified atrial fibrillation; K59.00 Constipation, unspecified; I25.2 Old myocardial infarction; Z79.01 Long term (current) use of anticoagulants; Z79.82 Long term (current) use of aspirin; Z79.84 Long term (current) use of oral hypoglycemic drugs; Z79.899 Other long term (current) drug therapy; Z87.891 Personal history of nicotine dependence; Z95.0 Presence of cardiac pacemaker
CPT/HCPCS: 71045; 80048; 80076; 82962; 83880; 84484; 85025; 85730; 87804; 93005; 93306; 99285; 36415-L1; 36415-TC

== ENCOUNTER 2024-08-08 08:08 | Inpatient (IN) | payer OTHER ==
[~2024-08-08] VITALS: Ht 170.2 cm; Wt 91.0 kg
[~2024-08-08 08:08] MED LIST changes: +APIX5TAB PO; +EMPA25TA3 PO; +LOSA-381 PO; +METF-446 PO; +METO25 PO; +OMEP20 PO; +PIOG30TA70 PO; -SEMA0.258 SQ; +SEMA1PEN3 SQ
[2024-08-08] MEDS: ASPIRIN 81 MG CHEWABLE TABLET PO ONE (08:21)
[2024-08-08] MEDS: NITROGLYCERIN 0.4 MG SUBLINGUAL TABLET #25 SL ONE (08:28)
[2024-08-08 08:35] LABS: GLUCOMETER DEV NAME(LOC) ERT.6; GLUCOSE,POINT OF CARE 110 MG/DL (70-110)
[2024-08-08 08:43] LABS: BASOPHILS % (AUTO) 0.7 % (0.0-2.0); EOSINOPHILS % (AUTO) 5.5 % (1.0-6.0); HEMATOCRIT 47.6 % (41-53); HEMOGLOBIN 15.8 g/dL (13.5-17.5); LYMPHOCYTES # (AUTO) 1.3 K/uL (1.0-4.8); LYMPHOCYTES % (AUTO) 22.6 % (22.0-44.0); MEAN CORPUSCULAR HEMOGLOBIN 31.1 pg (26.0-34.0); MEAN CORPUSCULAR HGB CONC 33.2 G/dL (31.0-37.0); MEAN CORPUSCULAR VOLUME 94 fL (80-100); MONOCYTES # (AUTO) 0.4 K/uL (0.1-1.0); MONOCYTES % (AUTO) 7.7 % (2.0-9.0); NEUTROPHILS # (AUTO) 3.6 K/uL (1.8-7.7); NEUTROPHILS % (AUTO) 63.5 % (40.0-70.0); PLATELET COUNT (AUTO) 233 K/uL (150-450); RED BLOOD CELL COUNT(AUTO) 5.08 MIL/uL (4.50-5.90); RED CELL DISTRIBUTION WIDTH 13.1 % (11.5-14.5); WHITE BLOOD COUNT (AUTO) 5.7 K/uL (4.5-11.0)
[2024-08-08 08:56] LABS: ANION GAP 11 mmol/L (8-16); CALCIUM, TOTAL 9.1 mg/dL (8.8-10.5); CARBON DIOXIDE 28 mmol/L (22-29); CHLORIDE 105 mmol/L (98-107); GLOMERULAR FILTR. RATE CALC > 60 mL/min (>60); GLUCOSE,RANDOM 92 mg/dL (70-110); SODIUM SERUM 144 mmol/L (136-145); UREA NITROGEN, BLOOD 16 mg/dL (7-18)
[2024-08-08 09:05] LABS: TROPONIN I-HIGH SENSITIVITY 5 ng/L (<76)
[2024-08-08 09:36] LABS: PROTHROMBIN TIME 11.1 SEC (9.4-11.6)
[2024-08-08] MEDS ORDERED: NITROGLYCERIN 0.4 MG SUBLINGUAL TABLET #25 SL PRN (11:00)
[2024-08-08] MEDS ORDERED: BISACODYL 10 MG RECTAL RECTAL SUPPOSITORY PR PRN (14:15)
[2024-08-08] MEDS ORDERED: MORPHINE SULFATE 2 MG/ML SYRINGE IVP PRN (14:15)
[2024-08-08] MEDS ORDERED: ONDANSETRON HCL 4 MG/2 ML VIAL IVP PRN (14:15)
[2024-08-08] MEDS ORDERED: ZOLPIDEM TARTRATE 5 MG TABLET PO PRN (14:15)
[2024-08-08] MEDS ORDERED: MAGNESIUM HYDROXIDE SUSPENSION 30 ML UDCUP PO PRN (14:15)
[2024-08-08] MEDS ORDERED: HYDROCODONE/ACETAMINOPHEN 5-325 MG TABLET PO PRN (14:15)
[2024-08-08 14:51] LABS: TROPONIN I-HIGH SENSITIVITY 7 ng/L (<76)
[2024-08-08 15:01] VITALS: BP 128/82; PULSE 68; RESP 19; TEMP 97.9; O2SAT 98
[2024-08-08 20:17] VITALS: BP 102/49; PULSE 70; RESP 18; TEMP 98.3; O2SAT 94
[2024-08-08] MEDS ORDERED: METOPROLOL TARTRATE 25 MG TABLET PO SCH (21:00)
[2024-08-08] MEDS: DOCUSATE SODIUM 100 MG CAPSULE PO SCH (21:00)
[2024-08-08] MEDS: ACETAMINOPHEN 325 MG TABLET PO PRN (21:00)
[2024-08-08] MEDS: MetFORMIN HCL 500 MG TABLET PO SCH (21:00)
[2024-08-08] MEDS ORDERED: APIXABAN 5 MG TABLET PO SCH (21:00)
[2024-08-08] MEDS: METOPROLOL TARTRATE 25 MG TABLET PO SCH (21:00)
[2024-08-09 00:15] VITALS: BP 128/75; PULSE 71; RESP 16; TEMP 97.7; O2SAT 96
[2024-08-09 04:12] VITALS: BP 103/60; PULSE 70; RESP 16; TEMP 98; O2SAT 95
[2024-08-09 06:16] LABS: LYMPHOCYTES # (AUTO) 1.4 K/uL (1.0-4.8); NEUTROPHILS # (AUTO) 3.1 K/uL (1.8-7.7)
[2024-08-09 06:24] LABS: ANION GAP 8 mmol/L (8-16); CALCIUM, TOTAL 8.7 mg/dL (8.8-10.5); CARBON DIOXIDE 25 mmol/L (22-29); CHLORIDE 104 mmol/L (98-107); CREATININE 0.71 mg/dL (0.60-1.30); GLOMERULAR FILTR. RATE CALC > 60 mL/min (>60); GLUCOSE,RANDOM 98 mg/dL (70-110); POTASSIUM 3.7 mmol/L (3.5-5.1); SODIUM SERUM 137 mmol/L (136-145); UREA NITROGEN, BLOOD 18 mg/dL (7-18)
[2024-08-09 06:25] LABS: BASOPHILS % (AUTO) 0.7 % (0.0-2.0); EOSINOPHILS % (AUTO) 5.6 % (1.0-6.0); HEMOGLOBIN 15.4 g/dL (13.5-17.5); LYMPHOCYTES % (AUTO) 27.5 % (22.0-44.0); MEAN CORPUSCULAR HEMOGLOBIN 31.1 pg (26.0-34.0); MEAN CORPUSCULAR HGB CONC 33.5 G/dL (31.0-37.0); MEAN CORPUSCULAR VOLUME 93 fL (80-100); MONOCYTES # (AUTO) 0.3 K/uL (0.1-1.0); MONOCYTES % (AUTO) 6.4 % (2.0-9.0); NEUTROPHILS % (AUTO) 59.8 % (40.0-70.0); PLATELET COUNT (AUTO) 214 K/uL (150-450); RED BLOOD CELL COUNT(AUTO) 4.95 MIL/uL (4.50-5.90); RED CELL DISTRIBUTION WIDTH 13.2 % (11.5-14.5); WHITE BLOOD COUNT (AUTO) 5.1 K/uL (4.5-11.0)
[2024-08-09 06:42] LABS: TROPONIN I-HIGH SENSITIVITY 6 ng/L (<76)
[2024-08-09 08:00] VITALS: BP 109/67; PULSE 67; RESP 15; TEMP 97.4; O2SAT 94
[2024-08-09] MEDS: LOSARTAN POTASSIUM 25 MG TABLET PO SCH (08:23)
[2024-08-09] MEDS ORDERED: ATORVASTATIN CALCIUM 40 MG TABLET PO SCH (09:00)
[2024-08-09] MEDS ORDERED: ASPIRIN 81 MG DR TABLET PO SCH (09:00)
[2024-08-09] MEDS: PIOGLITAZONE HCL 30 MG TABLET PO SCH (09:16)
[2024-08-09] MEDS: ASPIRIN 81 MG DR TABLET PO SCH (09:18)
[2024-08-09] MEDS: PANTOPRAZOLE SODIUM 40 MG DR TABLET PO SCH (09:18)
[2024-08-09] MEDS: ATORVASTATIN CALCIUM 40 MG TABLET PO SCH (09:19)
[2024-08-09] MEDS: EMPAGLIFLOZIN 25 MG TABLET PO SCH (09:19)
[2024-08-09 12:00] VITALS: BP 121/83; PULSE 67; RESP 15; TEMP 97.4; O2SAT 94
== END 2024-08-09 12:40 | disposition home or self-care (01) | DRG 198 ==
LOC: EMS 08:10 → EDH 10:58 → 5S 13:16
PROVIDERS: ADMIT Internal Medicine; ATTEND Internal Medicine
DX: I20.0 Unstable angina (principal); I49.5 Sick sinus syndrome; I48.20 Chronic atrial fibrillation, unspecified; E11.9 Type 2 diabetes mellitus without complications; I10 Essential (primary) hypertension; E78.00 Pure hypercholesterolemia, unspecified; Z95.0 Presence of cardiac pacemaker; Z79.01 Long term (current) use of anticoagulants; Z79.84 Long term (current) use of oral hypoglycemic drugs; Z79.899 Other long term (current) drug therapy; Z87.891 Personal history of nicotine dependence
CPT/HCPCS: 71045; 80048; 82962; 83880; 84484; 85025; 85610; 85730; 93005; 99285; G0378; 36415-L1; 36415-TC

== ENCOUNTER 2024-08-29 10:39 | Emergency (ER) | payer OTHER ==
[~2024-08-29] VITALS: Ht 170.2 cm; Wt 90.9 kg
[2024-08-29 10:41] VITALS: TEMP 98.2
[2024-08-29 11:00] LABS: GLUCOMETER DEV NAME(LOC) ER.7; GLUCOSE,POINT OF CARE 116 MG/DL (70-110)
[2024-08-29] MEDS: PERTUSS(ACELL),DIPH,TET/PF 0.5 ML SYRINGE [ADULT] IM. ONE (11:29)
[2024-08-29] MEDS: LIDOCAINE 1% 10 ML VIAL ID ONE (11:30)
[2024-08-29 12:15] VITALS: BP 124/74; PULSE 72; RESP 16; O2SAT 98
== END 2024-08-29 12:16 | disposition home or self-care (01) ==
LOC: EMS 10:40
DX: S61.217A Laceration without foreign body of left little finger without damage to nail, initial encounter (principal); E11.9 Type 2 diabetes mellitus without complications; E78.00 Pure hypercholesterolemia, unspecified; I10 Essential (primary) hypertension; F17.210 Nicotine dependence, cigarettes, uncomplicated; Z23 Encounter for immunization; Z79.01 Long term (current) use of anticoagulants; Z79.82 Long term (current) use of aspirin; Z79.84 Long term (current) use of oral hypoglycemic drugs; Z79.85 Long-term (current) use of injectable non-insulin antidiabetic drugs; Z79.899 Other long term (current) drug therapy; Z95.0 Presence of cardiac pacemaker; W45.8XXA Other foreign body or object entering through skin, initial encounter; Y93.89 Activity, other specified; Y92.89 Other specified places as the place of occurrence of the external cause; Y99.8 Other external cause status
CPT/HCPCS: 99283; 82962; 90715; 90471; 12001; J3490

== ENCOUNTER 2025-01-05 14:34 | Emergency (ER) | payer OTHER ==
[~2025-01-05] VITALS: Ht 170.2 cm; Wt 86.4 kg
[~2025-01-05 14:34] MED LIST changes: +OMEP-148 PO; -OMEP20 PO
[2025-01-05 14:41] VITALS: TEMP 98.2
[2025-01-05] MEDS: KETOROLAC TROMETHAMINE 60 MG/2 ML VIAL IM ONE (16:05)
[2025-01-05 16:25] VITALS: BP 129/67; PULSE 72; RESP 18; O2SAT 99
[2025-01-05] MEDS: SULFACETAMIDE SODIUM 10% 15 ML OPHTHALMIC SOLUTION OS ONE (17:58)
[2025-01-05] MEDS ORDERED: SULF15DR26 OS (18:13)
== END 2025-01-05 18:40 | disposition home or self-care (01) ==
LOC: EMS 14:38
DX: H10.9 Unspecified conjunctivitis (principal); R51.9 Headache, unspecified; E11.9 Type 2 diabetes mellitus without complications; I10 Essential (primary) hypertension; E78.00 Pure hypercholesterolemia, unspecified; F17.210 Nicotine dependence, cigarettes, uncomplicated; Z79.01 Long term (current) use of anticoagulants; Z79.82 Long term (current) use of aspirin; Z79.84 Long term (current) use of oral hypoglycemic drugs; Z79.899 Other long term (current) drug therapy
CPT/HCPCS: 99285; 70450; 96372; J1885

== ENCOUNTER 2025-02-20 10:20 | Emergency (ER) | payer OTHER ==
[~2025-02-20] VITALS: Ht 162.6 cm; Wt 81.8 kg
[~2025-02-20 10:20] MED LIST changes: +SULF15DR26 OS
[2025-02-20 10:22] VITALS: TEMP 98
[2025-02-20] MEDS: ACETAMINOPHEN 500 MG TABLET PO ONE (12:30)
[2025-02-20] MEDS: KETOROLAC TROMETHAMINE 60 MG/2 ML VIAL IM ONE (12:30)
[2025-02-20 12:41] LABS: BASOPHILS % (AUTO) 0.9 % (0.0-2.0); EOSINOPHILS % (AUTO) 4.8 % (1.0-6.0); HEMATOCRIT 45.1 % (41-53); HEMOGLOBIN 15.1 g/dL (13.5-17.5); LYMPHOCYTES # (AUTO) 1.5 K/uL (1.0-4.8); LYMPHOCYTES % (AUTO) 27.2 % (22.0-44.0); MEAN CORPUSCULAR HEMOGLOBIN 30.9 pg (26.0-34.0); MEAN CORPUSCULAR HGB CONC 33.5 G/dL (31.0-37.0); MEAN CORPUSCULAR VOLUME 92 fL (80-100); MONOCYTES # (AUTO) 0.5 K/uL (0.1-1.0); MONOCYTES % (AUTO) 8.8 % (2.0-9.0); NEUTROPHILS # (AUTO) 3.3 K/uL (1.8-7.7); NEUTROPHILS % (AUTO) 58.3 % (40.0-70.0); PLATELET COUNT (AUTO) 225 K/uL (150-450); RED BLOOD CELL COUNT(AUTO) 4.88 MIL/uL (4.50-5.90); RED CELL DISTRIBUTION WIDTH 13.4 % (11.5-14.5); WHITE BLOOD COUNT (AUTO) 5.6 K/uL (4.5-11.0)
[2025-02-20 12:50] LABS: ANION GAP 9 mmol/L (8-16); CALCIUM, TOTAL 8.8 mg/dL (8.8-10.5); CARBON DIOXIDE 26 mmol/L (22-29); CHLORIDE 104 mmol/L (98-107); CREATININE 0.67 mg/dL (0.60-1.30); GLOMERULAR FILTR. RATE CALC > 60 mL/min (>60); GLUCOSE,RANDOM 84 mg/dL (70-110); POTASSIUM 3.8 mmol/L (3.5-5.1); SODIUM SERUM 139 mmol/L (136-145); UREA NITROGEN, BLOOD 15 mg/dL (7-18)
[2025-02-20 12:59] LABS: TROPONIN I-HIGH SENSITIVITY 7 ng/L (<76)
[2025-02-20 13:11] LABS: APPEARANCE,URINE CLEAR (CLEAR); BILIRUBIN,URINE NEGATIVE (NEGATIVE); COLOR,URINE LIGHT YELLOW (YELLOW); GLUCOSE, URINE (UA) >=1000 mg/dL (NEGATIVE); KETONES,URINE NEGATIVE (NEGATIVE); LEUKOCYTE ESTERASE ,URINE NEGATIVE (NEGATIVE); NITRATE,URINE NEGATIVE (NEGATIVE); OCCULT BLOOD,URINE NEGATIVE (NEGATIVE); PROTEIN,URINE NEGATIVE (NEGATIVE); SPECIFIC GRAVITIY, URINE 1.019 (1.003-1.030); UROBILINOGEN,URINE <=1.0 mg/dL (<=1.0)
[2025-02-20 13:21] LABS: BACTERIA,URINE None Seen /HPF (None Seen); RBC,URINE None Seen /HPF (0-2); WBC,URINE None Seen /HPF (0-5)
[2025-02-20] MEDS ORDERED: ACET-2080 PO (13:59)
[2025-02-20] MEDS ORDERED: MECL-134 PO (13:59)
[2025-02-20 14:11] VITALS: BP 118/62; PULSE 71; RESP 16; O2SAT 95
== END 2025-02-20 14:13 | disposition home or self-care (01) ==
LOC: EMS 10:27
DX: R51.9 Headache, unspecified (principal); H11.32 Conjunctival hemorrhage, left eye; R42 Dizziness and giddiness; I10 Essential (primary) hypertension; E11.9 Type 2 diabetes mellitus without complications; E78.00 Pure hypercholesterolemia, unspecified; I25.2 Old myocardial infarction; F17.210 Nicotine dependence, cigarettes, uncomplicated; Z98.890 Other specified postprocedural states; Z95.0 Presence of cardiac pacemaker; Z79.01 Long term (current) use of anticoagulants; Z79.85 Long-term (current) use of injectable non-insulin antidiabetic drugs; Z79.82 Long term (current) use of aspirin; Z79.899 Other long term (current) drug therapy
CPT/HCPCS: 99285; 70450; 71045; 80048; 81001; 82962; 84484; 85025; 36415; 93005; 96372; J1885

== ENCOUNTER 2025-03-08 19:55 | Emergency (ER) | payer OTHER ==
[~2025-03-08] VITALS: Ht 167.6 cm; Wt 90.9 kg
[~2025-03-08 19:55] MED LIST changes: +ACET-2080 PO; +MECL-134 PO; -SULF15DR26 OS
[2025-03-08 20:00] VITALS: TEMP 99.1
[2025-03-08 21:15] VITALS: BP 138/81; PULSE 92; RESP 18; O2SAT 97
== END 2025-03-08 21:34 | disposition home or self-care (01) ==
LOC: EMS 19:55
DX: S80.12XA Contusion of left lower leg, initial encounter (principal); E11.9 Type 2 diabetes mellitus without complications; E78.00 Pure hypercholesterolemia, unspecified; I10 Essential (primary) hypertension; F17.210 Nicotine dependence, cigarettes, uncomplicated; Z98.890 Other specified postprocedural states; Z79.01 Long term (current) use of anticoagulants; Z79.82 Long term (current) use of aspirin; Z79.85 Long-term (current) use of injectable non-insulin antidiabetic drugs; Z95.0 Presence of cardiac pacemaker; Z79.899 Other long term (current) drug therapy; W57.XXXA Bitten or stung by nonvenomous insect and other nonvenomous arthropods, initial encounter; Y93.89 Activity, other specified; Y92.89 Other specified places as the place of occurrence of the external cause; Y99.8 Other external cause status
CPT/HCPCS: 99282; Z7502

== ENCOUNTER 2025-05-17 10:49 | Emergency (ER) | payer OTHER ==
[~2025-05-17] VITALS: Ht 170.2 cm; Wt 87.3 kg
[2025-05-17 10:51] VITALS: TEMP 98.1
[2025-05-17] MEDS: ACETAMINOPHEN/CODEINE 300-30 MG TABLET PO ONE (13:13)
[2025-05-17 14:11] VITALS: BP 134/77; PULSE 76; RESP 18; O2SAT 99
== END 2025-05-17 14:36 | disposition home or self-care (01) ==
LOC: EMS 11:04
DX: S63.501A Unspecified sprain of right wrist, initial encounter (principal); E11.9 Type 2 diabetes mellitus without complications; E78.00 Pure hypercholesterolemia, unspecified; I11.9 Hypertensive heart disease without heart failure; I25.2 Old myocardial infarction; F17.210 Nicotine dependence, cigarettes, uncomplicated; Z98.890 Other specified postprocedural states; Z79.01 Long term (current) use of anticoagulants; Z79.82 Long term (current) use of aspirin; Z79.85 Long-term (current) use of injectable non-insulin antidiabetic drugs; Z79.899 Other long term (current) drug therapy; Z95.0 Presence of cardiac pacemaker; W01.0XXA Fall on same level from slipping, tripping and stumbling without subsequent striking against object, initial encounter; Y93.89 Activity, other specified; Y92.009 Unspecified place in unspecified non-institutional (private) residence as the place of occurrence of the external cause; Y99.8 Other external cause status
CPT/HCPCS: 99283

== ENCOUNTER 2025-06-01 12:24 | Emergency (ER) | payer OTHER ==
[~2025-06-01] VITALS: Ht 170.2 cm; Wt 86.4 kg
[2025-06-01 12:31] VITALS: BP 136/92; PULSE 75; RESP 18; TEMP 97.9; O2SAT 97
[2025-06-01 13:00] LABS: GLUCOMETER DEV NAME(LOC) ERT.7; GLUCOSE,POINT OF CARE 120 MG/DL (70-110)
[2025-06-01] MEDS ORDERED: ERYT3.5O8 OD (13:52)
[2025-06-01] MEDS ORDERED: ACET-2080 PO (13:52)
[2025-06-01] MEDS ORDERED: ACETAMINOPHEN/CODEINE 300-30 MG TABLET PO ONE (14:00)
[2025-06-01] MEDS ORDERED: ERYTHROMYCIN 0.5% 3.5 GM TUBE OPHTHALMIC OINTMENT OD ONE (14:00)
== END 2025-06-01 14:04 | disposition home or self-care (01) ==
LOC: EMS 12:26
DX: S00.11XA Contusion of right eyelid and periocular area, initial encounter (principal); I10 Essential (primary) hypertension; E11.9 Type 2 diabetes mellitus without complications; E78.00 Pure hypercholesterolemia, unspecified; Z79.01 Long term (current) use of anticoagulants; Z79.82 Long term (current) use of aspirin; Z79.84 Long term (current) use of oral hypoglycemic drugs; Z79.85 Long-term (current) use of injectable non-insulin antidiabetic drugs; Z79.899 Other long term (current) drug therapy; W44.9XXA Unspecified foreign body entering into or through a natural orifice, initial encounter; Y93.89 Activity, other specified; Y92.89 Other specified places as the place of occurrence of the external cause; Y99.8 Other external cause status
CPT/HCPCS: 82962; 99283